=== PATIENT | male | born 1965 | race Caucasian/White ===

== ENCOUNTER 2017-12-03 08:36 | Observation (INO) ==
--- NOTE | 2017-12-03 09:50 | ED ---
HPI General Chief Complaint: Chest Pain Stated Complaint: chest pain x 1 day Time Seen by Provider: 12/03/17 09:34 Source: patient Mode of arrival: ambulatory Limitations: no limitations History of Present Illness HPI narrative: This patient complains of chest pain. Duration is 15 hours per severity is moderate. Location is low center sternum. He is not short of breath. He has no fever or cough. He denies heartburn. He says the pain is worse when he lies on his right side. No alleviating factors. No injury. He denies coronary artery disease. He says in [place] where he is from he had a heart catheterization 4 years ago that did not show any significant problem. He does not have any documentation. Severity of discomfort is moderate. It has significantly improved from yesterday evening. Complete Quality Measures for STEMI Alert Patients Related Data Home Medications Medication Instructions Recorded Confirmed Vitamin D3 2,000 units PO DAILY 12/03/17 12/03/17 diltiazem HCl 240 mg PO DAILY 12/03/17 12/03/17 lisinopril-hydrochlorothiazide 1 tab PO HS 12/03/17 12/03/17 Allergies Allergy/AdvReac Type Severity Reaction Status Date / Time penicillin V Allergy Unknown unknown Verified 12/03/17 09:01 Review of Systems Except as stated in HPI: all other systems reviewed are negative [facility] Medical History Medical History History of testicular lump (Acute) Hypertension (Acute) Normal coronary angiogram (Acute) Surgical History Surgical History History of umbilical hernia repair (Acute) History of vasectomy (Acute) Social History Social History Substance History: No History of Abuse Second Hand Smoke Exposure: No Smoking Status: Never smoker How Often Do You Have a Drink Containing Alcohol: 2 to 4 times a month Recent Travel in [facility] within the Last 8 Weeks: No Recent Out of Country Travel within the Last 8 Weeks: Yes Immunization History Tetanus Immunization: <5 Years Tetanus Immunization Year if Known: 2016 Hx Influenza Vaccine This Season: No Exam Narrative Exam Narrative: GENERAL: Well-nourished, well-developed patient in no apparent distress. SKIN: Focused skin assessment reveals no rash and nodules. Skin is Warm and dry. HEAD: Atraumatic. Normocephalic. EYES: Pupils equal and round. No scleral icterus. No injection or drainage. ENT: No nasal bleeding or discharge. Mucous membranes pink and moist. NECK: Trachea midline. No JVD. CARDIOVASCULAR: Regular rate and rhythm. No murmur appreciated. RESPIRATORY: No accessory muscle use. Clear to auscultation. Breath sounds equal bilaterally. GASTROINTESTINAL: Abdomen soft, non-tender, nondistended. Hepatic and splenic margins not palpable. MUSCULOSKELETAL: No obvious deformities. No clubbing. No cyanosis. No edema. NEUROLOGICAL: Awake and alert. No obvious cranial nerve deficits. Motor grossly within normal limits. Normal speech. PSYCHIATRIC: Appropriate mood and affect; insight and judgment normal. Course Initial Documented Vital Signs Temperature 98.2 F 12/03/17 08:40 Pulse Rate 65 12/03/17 08:40 Respiratory Rate 16 12/03/17 08:40 Blood Pressure 163/79 H 12/03/17 08:40 Pulse Oximetry 95 12/03/17 08:40 Last Documented Vital Signs Temperature 98.2 F 12/03/17 08:40 Pulse Rate 66 12/03/17 10:00 Respiratory Rate 16 12/03/17 10:00 Blood Pressure 114/57 L 12/03/17 10:00 Pulse Oximetry 97 12/03/17 10:00 Medical Decision Making MDM Narrative Medical decision making narrative: I ordered a chest pain workup. I reviewed his EKG which shows sinus rhythm but no ST elevation. I reviewed his chest x-ray which shows atelectasis and hemidiaphragm elevation I gave him aspirin Labs are all normal including cardiac enzymes Had a lengthy discussion with the patient. He will be a 23 hour observation in the chest pain center in order to rule out cardiac cause of his symptoms. I have paged the hospitalist to discuss. Differential Diagnosis Differential Diagnosis: Differential diagnosis includes [place], angina, pericarditis , pleurisy, GERD, anxiety. Medical Records Medical records reviewed: Yes I reviewed the patient's medical records. Lab Data Lab results reviewed: Yes I reviewed the patient's lab results. Lab results narrative: Normal Result diagrams: 12/03/17 09:15 12/03/17 09:15 Lab Results 12/03/17 12/03/17 12/03/17 Range/Units 09:15 09:15 09:15 CBC w Diff Auto diff final WBC 7.2 (4.0-11.0) th/mm3 RBC 5.58 (4.50-5.90) mil/mm3 Hgb 17.0 (13.0-17.0) gm/dL Hct 49.5 (39.0-51.0) % MCV 88.7 (80.0-100.0) fL MCH 30.5 (27.0-34.0) pg MCHC 34.3 (32.0-36.0) % RDW 11.9 (11.6-17.2) % Plt Count 188 (150-450) th/mm3 MPV 7.9 (7.0-11.0) fL Neut % (Auto) 65.9 (16.0-70.0) % Lymph % (Auto) 20.4 (9.0-44.0) % [place] % (Auto) 11.4 H (0.0-8.0) % Eos % (Auto) 1.1 (0.0-4.0) % Baso % (Auto) 1.2 (0.0-2.0) % Neut # (Auto) 4.7 (1.8-7.7) th/mm3 Lymph # (Auto) 1.5 (1.0-4.8) th/mm3 [place] # (Auto) 0.8 (0.0-0.9) th/mm3 Eos # (Auto) 0.1 (0.0-0.4) th/mm3 Baso # (Auto) 0.1 (0.0-0.2) th/mm3 WBC Differential . Differential Comment . PT 10.7 (9.8-11.6) sec INR 1.1 Ratio APTT 27.8 (24.3-30.1) sec Sodium 140 (136-145) meq/L Potassium 3.4 L (3.5-5.1) meq/L Chloride 103 (98-107) meq/L Carbon Dioxide 27.8 (21.0-32.0) meq/L Anion Gap 9 (5-15) meq/L BUN 13 (7-18) mg/dL Creatinine 1.10 (0.60-1.30) mg/dL Estimated GFR 70 L (>89) mL/min Random Glucose 97 (74-106) mg/dL Calcium 8.5 (8.5-10.1) mg/dL Magnesium 2.1 (1.5-2.5) mg/dL Total Bilirubin 0.9 (0.2-1.0) mg/dL AST 19 (15-37) U/L ALT 32 (12-78) U/L Alkaline Phosphatase 75 (45-117) U/L Total Creatine Kinase 111 (39-308) U/L CK-MB (CK-2) Less than 0.5 L (0.5-3.6) ng/mL Troponin I Less than 0.02 L (0.02-0.05) ng/mL Total Protein 6.8 (6.4-8.2) g/dL Albumin 3.8 (3.4-5.0) g/dL Lipase 119 (73-393) U/L Imaging Data Radiologist's impression: ITS Impressions Chest X-Ray 12/03/17 09:42 CONCLUSION: Elevation right hemidiaphragm with right basilar density likely atelectasis. Discharge Plan Physicians Team ED Provider: Cuauhtemoc Hudson Primary Care Provider: Joseph Graf Rxs /Orders / Referrals /Forms Prescriptions: No Action diltiazem HCl 240 mg Capsule,Ext.Rel 24h Degradable 240 mg PO DAILY RF: 0 lisinopril-hydrochlorothiazide 20-12.5 mg Tablet 1 tab PO HS RF: 0 Vitamin D3 1,000 UNITS 2,000 units PO DAILY RF: 0 Discharge Interventions Interventions: Vital Signs Last Done: 12/03/17 10:00 Status ED Status: With Doctor
[2017-12-03 10:09] LABS: Baso # (Auto) 0.1 th/mm3 (0.0-0.2); Baso % (Auto) 1.2 % (0.0-2.0); Eos # (Auto) 0.1 th/mm3 (0.0-0.4); Eos % (Auto) 1.1 % (0.0-4.0); Hematocrit 49.5 % (39.0-51.0); Lymph # (Auto) 1.5 th/mm3 (1.0-4.8); Lymph % (Auto) 20.4 % (9.0-44.0); Mean Corpuscular HGB Conc 34.3 % (32.0-36.0); Mean Corpuscular Hemoglobin 30.5 pg (27.0-34.0); Mean Corpuscular Volume 88.7 fL (80.0-100.0); Mean Platelet Volume 7.9 fL (7.0-11.0); Mono # (Auto) 0.8 th/mm3 (0.0-0.9); Mono % (Auto) 11.4 % (0.0-8.0); Neut # (Auto) 4.7 th/mm3 (1.8-7.7); Neut % (Auto) 65.9 % (16.0-70.0); Platelet Count 188 th/mm3 (150-450); Red Blood Count 5.58 mil/mm3 (4.50-5.90); Red Cell Distribution Width 11.9 % (11.6-17.2); White Blood Count 7.2 th/mm3 (4.0-11.0)
--- NOTE | 2017-12-03 10:17 | XR ---
EXAM DATE: 12/03/2017 10:07 AM EDT AGE/SEX: 52 years / Male INDICATIONS: Substernal chest pain x 2 days. CLINICAL DATA: This is the patient's initial encounter. Patient reports that signs and symptoms have been present for 2 days and indicates a pain score of 5/10. MEDICAL/SURGICAL HISTORY: Hypertension. Umbilical hernia repair. COMPARISON: No prior exams available for comparison. FINDINGS: A single AP view of the chest demonstrates elevation right hemidiaphragm and right basilar density. L eft lung clear. Heart borderline enlarged. The cardiomediastinal contours are unremarkable. Osseous structures are intact. CONCLUSION: Elevation right hemidiaphragm with right basilar density likely atelectasis. Electronically signed by: Pako Tipton MD 12/03/2017 10:15 AM EDT
[2017-12-03 10:20] LABS: Chloride 103 meq/L (98-107); Potassium 3.4 meq/L (3.5-5.1); Sodium 140 meq/L (136-145)
[2017-12-03 10:23] LABS: Calcium 8.5 mg/dL (8.5-10.1)
[2017-12-03 10:24] LABS: Albumin 3.8 g/dL (3.4-5.0); Anion Gap 9 meq/L (5-15); Blood Urea Nitrogen 13 mg/dL (7-18); Carbon Dioxide 27.8 meq/L (21.0-32.0); Glucose,Random 97 mg/dL (74-106); Magnesium 2.1 mg/dL (1.5-2.5)
[2017-12-03 10:25] LABS: Lipase 119 U/L (73-393)
[2017-12-03 10:26] LABS: Activated Partial Thrombo Time 27.8 sec (24.3-30.1); INR 1.1 Ratio; Prothrombin Time 10.7 sec (9.8-11.6)
[2017-12-03 10:27] LABS: Alanine Aminotransferase 32 U/L (12-78); Aspartate Aminotransferase 19 U/L (15-37); Glomerular Filtration Rate 70 mL/min (>89)
[2017-12-03 10:29] LABS: Total Protein 6.8 g/dL (6.4-8.2)
[2017-12-03 10:30] LABS: Alkaline Phosphatase 75 U/L (45-117); Creatine Kinase 111 U/L (39-308)
--- NOTE | 2017-12-03 10:52 | ECG ---
Date Performed: 12/03/2017 Time Performed: 08:41:47 PTAGE: 52 years EKG: Sinus rhythm MINIMAL VOLTAGE CRITERIA FOR LVH, CONSIDER NORMAL VARIANT BORDERLINE ECG INTERPRETATION BASED ON A D EFAULT AGE OF 88 YEARS NO PREVIOUS TRACING DOCTOR: Luis Astorga Interpretating Date/Time 12/03/2017 10:50:34
--- NOTE | 2017-12-03 12:05 | P.HPIM ---
History of Present Illness Primary Care Physician: Joseph Graf MD Chief Complaint: chest pain History of Present Illness: patient is a 52 y/o male with history of hypertension who presented to ER with chest pain. he says that the pain started last evening when he was resting. the pain was sharp and midsternal with no radiation. he denies any nausea but had some sob. he says that he had cardiac cath three-four years ago which was reportedly negative. - Diagnosis (1) Atypical chest pain (2) Hypertension Inpatient Certification: I certify that the inpatient services were ordered in accordance with Medicare regulations governing the order. This includes certification that hospital inpatient services are reasonable and necessary and in the case of services not specified as inpatient-only under 42 CFR 419.22(n), that they are appropriately provided as inpatient services in accordance to with the 2-midnight benchmark under 43 CFR 412.3(e) Review of Systems All other systems reviewed negative except as stated in HPI PMFSH - History History Provided By: Patient, Family Member - Medical History Medical History: Medical History (Last Updated 12/03/17 @ 09:20 by Laura Claros) History of testicular lump Hypertension Normal coronary angiogram - Surgical History Surgical History: Surgical History (Last Updated 12/03/17 @ 09:20 by Laura Claros) History of umbilical hernia repair History of vasectomy - Tobacco History Second Hand Smoke Exposure: No Tobacco Use In Past 30 Days: No Smoking Status: Never smoker - Alcohol History How Often Do You Have a Drink Containing Alcohol: 2 to 4 times a month - Substance Use History Substance History: No History of Abuse - Travel History Recent Travel in the [place] Within the Last 8 Weeks: No Recent Travel Out of the Country Within the Last 8 Weeks: Yes - Immunization History Tetanus Immunization: <5 Years Tetanus Immunization Year if Known: 2015 Hx Influenza Vaccine This Season: No Medications and Allergies Active Medications: Active Medications Sodium Chloride (Ns Inj) 1,000 mls @ 100 mls/hr IV.CONT .Q10H ALEXANDRA Non-Formulary Medication (Lisinopril-Hydrochlorothiazide [Lisinopril- Hydrochlorothiazide]) 1 tab PO HS ALEXANDRA Potassium Chloride (K-Dur) 20 meq PO ONCE ONE Stop: 12/03/17 11:59 Sodium Chloride (Ns Flush) 2 ml IV.FLUSH UNSCH PRN PRN Reason: FLUSH AFTER USING IV ACCESS Allergies Allergy/AdvReac Type Severity Reaction Status Date / Time penicillin V Allergy Unknown unknown Verified 12/03/17 09:01 Home Medications Medication Instructions Recorded Confirmed Type Vitamin D3 2,000 units PO DAILY 12/03/17 12/03/17 History diltiazem HCl 240 mg PO DAILY 12/03/17 12/03/17 History lisinopril-hydrochlorothiazide 1 tab PO HS 12/03/17 12/03/17 History Exam Vital signs: Vital Signs 12/03/17 08:40 12/03/17 09:05 12/03/17 10:00 Temperature 98.2 F Pulse Rate 65 66 Respiratory Rate 16 16 Blood Pressure 163/79 H 114/57 L Pulse Oximetry 95 97 97 12/03/17 11:11 Temperature Pulse Rate 70 Respiratory Rate 16 Blood Pressure 122/84 Pulse Oximetry 97 Intake & Output 12/02/17 12/03/17 12/03/17 18:59 06:59 18:59 Weight 149.4 kg - Constitutional no acute distress - Routine HEENT Exam Eye: Present: PERRL - Routine Neck Exam Present: supple, full ROM - Routine Respiratory Exam Present: CTA bilaterally - Routine Cardiovascular Exam Present: RRR - Routine Abdominal Exam Present: soft - Routine Extremities Exam Comments: no pedal edema. - Routine Neurological Exam Present: alert, oriented X3 Results - Labs CBC & Chem 7: 12/03/17 09:15 12/03/17 09:15 Labs: Short CBC 12/03/17 Range/Units 09:15 WBC 7.2 (4.0-11.0) th/mm3 Hgb 17.0 (13.0-17.0) gm/dL Hct 49.5 (39.0-51.0) % Plt Count 188 (150-450) th/mm3 BMP 12/03/17 09:15 Sodium 140 Potassium 3.4 L Chloride 103 Carbon Dioxide 27.8 BUN 13 Creatinine 1.10 Calcium 8.5 Cardiac Enzymes 12/03/17 Range/Units 09:15 Total Creatine Kinase 111 (39-308) U/L CK-MB (CK-2) Less than 0.5 L (0.5-3.6) ng/mL Troponin I Less than 0.02 L (0.02-0.05) ng/mL Liver Function 12/03/17 Range/Units 09:15 Total Bilirubin 0.9 (0.2-1.0) mg/dL AST 19 (15-37) U/L ALT 32 (12-78) U/L Alkaline Phosphatase 75 (45-117) U/L Albumin 3.8 (3.4-5.0) g/dL - Imaging Impressions Chest X-Ray 12/03/17 09:42 CONCLUSION: Elevation right hemidiaphragm with right basilar density likely atelectasis. Caprini VTE Risk Assessment Caprini VTE Risk Assessment: Moderate/High Risk (score >= 2) Caprini Risk Assessment Model: Point Value = 1 Point Value = 2 Point Value = 3 Point Value = 5 Age 41-60 Minor surgery BMI > 25 kg/m2 Swollen legs Varicose veins or History of unexplained or recurrent spontaneous Oral contraceptives or hormone replacement Sepsis (< 1 month) Serious lung disease, including pneumonia (< 1 month) Abnormal pulmonary function Acute myocardial infarction Congestive heart failure (< 1 month) History of inflammatory bowel disease Medical patient at bed rest Age 61-74 Arthroscopic surgery Major open surgery (> 45 min) Laparoscopic surgery (> 45 min) Malignancy Confined to bed (> 72 hours) Immobilizing plaster cast Central venous access Age >= 75 History of VTE Family history of VTE Factor V Leiden Prothrombin [id number] Lupus anticoagulant Anticardiolipin antibodies Elevated serum homocysteine Heparin-induced thrombocytopenia Other congenital or acquired thrombophilia Stroke (< 1 month) Elective arthroplasty Hip, pelvis, or leg fracture Acute spinal cord injury (< 1 month) Prophylaxis Regimen: Total Risk Factor Score Risk Level Prophylaxis Regimen 0-1 Low Early ambulation 2 Moderate Order ONE of the following: *Sequential Compression Device (SCD) *Heparin 5000 units SQ BID 3-4 Higher Order ONE of the following medications: *Heparin 5000 units SQ TID *Enoxaparin/Lovenox 40 mg SQ daily (WT < 150 kg, CrCl > 30 mL/min) *Enoxaparin/Lovenox 30 mg SQ daily (WT < 150 kg, CrCl > 10-29 mL/min) *Enoxaparin/Lovenox 30 mg SQ BID (WT < 150 kg, CrCl > 30 mL/min) AND/OR *Sequential Compression Device (SCD) 5 or more Highest Order ONE of the following medications: *Heparin 5000 units SQ TID (Preferred with Epidurals) *Enoxaparin/Lovenox 40 mg SQ daily (WT < 150 kg, CrCl > 30 mL/min) *Enoxaparin/Lovenox 30 mg SQ daily (WT < 150 kg, CrCl > 10-29 mL/min) *Enoxaparin/Lovenox 30 mg SQ BID (WT < 150 kg, CrCl > 30 mL/min) AND *Sequential Compression Device (SCD) Assessment and Plan - Assessment (1) Atypical chest pain Code(s): R07.89 - Other chest pain Status: Acute Plan: will rule out with serial cardiac enzymes- stress test tomorrow if cardiac enzymes negative. of note had a normal cardiac cath three-four years ago. (2) Hypertension Code(s): I10 - Essential (primary) hypertension Status: Chronic Plan: resume lisinopril- hold cardizem for today. - Plan Discussed Condition With: ER physician and the patient. Discharge Planning: possible tomorrow-pending the cardiac work-up. (2) Hypertension Qualifiers: Hypertension type: essential hypertension Qualified Code(s): I10 - Essential (primary) hypertension
[2017-12-03] MEDS: Sod Chloride 0.9% Inj 1,000 ML IV.CONT SCH ×2 (12:41→22:27)
[2017-12-03] MEDS ORDERED: hydroCHLOROthiazide 25 MG Tablet PO SCH (21:00)
[2017-12-03] MEDS ORDERED: Lisinopril 20 MG Tablet PO SCH (21:00)
--- NOTE | 2017-12-03 23:12 | ECG ---
Date Performed: 12/03/2017 Time Performed: 15:30:06 PTAGE: 52 years EKG: Sinus rhythm NONSPECIFIC INTRAVENTRICULAR CONDUCTION DELAY MINIMAL VOLTAGE CRITERIA FOR LVH, CONSIDER NORMAL VARI ANT NONSPECIFIC T-WAVE ABNORMALITY BORDERLINE ECG PREVIOUS TRACING : 12/03/2017 08.41 No significant change from previous tracing noted. DOCTOR: Luis Astorga Interpretating Date/Time 12/03/2017 23:11:07
--- NOTE | 2017-12-04 08:13 | P.PN ---
Subjective Interval history: in no acute distress. denies chest pain, sob or any other new complaints. Physical Exam Vital signs: Vital Signs 12/03/17 08:40 12/03/17 09:05 12/03/17 10:00 Temperature 98.2 F Pulse Rate 65 66 Respiratory Rate 16 16 Blood Pressure 163/79 H 114/57 L Pulse Oximetry 95 97 97 12/03/17 11:11 12/03/17 11:45 12/03/17 16:00 Temperature 98.3 F 97.6 F Pulse Rate 70 70 Respiratory Rate 16 20 20 Blood Pressure 122/84 133/77 147/71 H Pulse Oximetry 97 94 L 92 L 12/03/17 20:00 12/03/17 20:54 12/03/17 22:33 Temperature 98.6 F Pulse Rate 67 Respiratory Rate 20 Blood Pressure 138/80 Pulse Oximetry 96 96 96 12/04/17 00:00 12/04/17 04:05 12/04/17 07:11 Temperature 97.4 F L 97.1 F L 97.1 F L Pulse Rate 63 65 67 Respiratory Rate 20 20 20 Blood Pressure 146/71 H 136/61 151/65 H Pulse Oximetry 96 96 94 L Intake & Output 12/03/17 12/04/17 12/04/17 18:59 06:59 18:59 Intake Total 720 / 720 1000 / 1000 Balance 720 / 720 1000 / 1000 Weight 149.4 kg Intake: IV 1000 / 1000 NS Inj 1,000 ML @ 100 mls/hr IV 1000 / 1000 .CONT .Q10H ALEXANDRA Rx#:[id number] Oral 720 / 720 Other: # Voids 1 # Bowel Movements 1 - Constitutional no acute distress - Routine Respiratory Exam Present: CTA bilaterally - Routine Cardiovascular Exam Present: RRR - Routine Abdominal Exam Present: soft - Routine Extremities Exam Comments: no pedal edema. - Routine Neurological Exam Present: alert Results - Labs CBC & Chem 7: 12/03/17 09:15 12/03/17 09:15 Laboratory Results - last 24 hr 12/03/17 12/03/17 12/03/17 09:15 09:15 09:15 CBC w Diff Auto diff final WBC 7.2 RBC 5.58 Hgb 17.0 Hct 49.5 MCV 88.7 MCH 30.5 MCHC 34.3 RDW 11.9 Plt Count 188 MPV 7.9 Neut % (Auto) 65.9 Lymph % (Auto) 20.4 [place] % (Auto) 11.4 H Eos % (Auto) 1.1 Baso % (Auto) 1.2 Neut # (Auto) 4.7 Lymph # (Auto) 1.5 [place] # (Auto) 0.8 Eos # (Auto) 0.1 Baso # (Auto) 0.1 WBC Differential . Differential Comment . PT 10.7 INR 1.1 APTT 27.8 Sodium 140 Potassium 3.4 L Chloride 103 Carbon Dioxide 27.8 Anion Gap 9 BUN 13 Creatinine 1.10 Estimated GFR 70 L Random Glucose 97 Calcium 8.5 Magnesium 2.1 Total Bilirubin 0.9 AST 19 ALT 32 Alkaline Phosphatase 75 Total Creatine Kinase 111 CK-MB (CK-2) Less than 0.5 L Troponin I Less than 0.02 L Total Protein 6.8 Albumin 3.8 Lipase 119 12/03/17 12/03/17 13:08 15:30 CBC w Diff WBC RBC Hgb Hct MCV MCH MCHC RDW Plt Count MPV Neut % (Auto) Lymph % (Auto) [place] % (Auto) Eos % (Auto) Baso % (Auto) Neut # (Auto) Lymph # (Auto) [place] # (Auto) Eos # (Auto) Baso # (Auto) WBC Differential Differential Comment PT INR APTT Sodium Potassium Chloride Carbon Dioxide Anion Gap BUN Creatinine Estimated GFR Random Glucose Calcium Magnesium Total Bilirubin AST ALT Alkaline Phosphatase Total Creatine Kinase CK-MB (CK-2) Troponin I Less than 0.02 L Less than 0.02 L Total Protein Albumin Lipase - Imaging Impressions Chest X-Ray 12/03/17 09:42 CONCLUSION: Elevation right hemidiaphragm with right basilar density likely atelectasis. Assessment and Plan - Assessment (1) Atypical chest pain Code(s): R07.89 - Other chest pain Status: Acute Plan: cardiac enzymes negative- for stress test today. of note had a normal cardiac cath three-four years ago. (2) Hypertension Code(s): I10 - Essential (primary) hypertension Status: Chronic Plan: resumed lisinopril- hold cardizem for today. - Plan Discharge Planning: possible today-pending the stress test. (2) Hypertension Qualifiers: Hypertension type: essential hypertension Qualified Code(s): I10 - Essential (primary) hypertension
[2017-12-04] MEDS: Sod Chloride 0.9% Inj 1,000 ML IV.CONT SCH (08:17)
[2017-12-04] MEDS ORDERED: Enoxaparin Inj 40 MG/0.4 ML Syringe SQ SCH (09:00)
[2017-12-04] MEDS ORDERED: Regadenoson Inj 0.4 MG/5 ML Syringe IV.PUSH ONE (11:42)
--- NOTE | 2017-12-04 12:49 | NM ---
EXAM DATE: 12/04/2017 12:36 PM EDT AGE/SEX: 52 years / Male INDICATIONS:Angina. . Left sided chest pain for one day. CLINICAL DATA: This is the patient's initial encounter. Patient reports that signs and symptoms have been present for 1 day and indicates a pain score of 7/10. MEDICAL/SURGICAL HISTORY: Hypertension. Umbilical hernia repair. COMPARISON: No prior exams available for comparison. No external comparison. DOSE: 11.0 mCi Tc 99m Myoview at rest 35.0 mCi [id number] at stress 0.4 mg Lexiscan STRESS SYMPTOMS: Short of breath. EJECTION FRACTION: 46 % TECHNIQUE: The patient underwent pharmacologic stress with infusion of prescribed dose. Continuous ECG tracing was monitored during stress. Gated SPECT imaging was performed after stress and conventi onal SPECT imaging was performed at rest. The examination was performed on a SPECT/CT scanner, both attenuation and non-corrected datasets were reviewed. FINDINGS: Distribution: The maximum perfused segment at stress is in the lateral wall. Perfusion Study: No reversible perfusion defect. Small matched defect at the apex. Gated Study: Global hypokinesia. The ejection fraction is calculated at 46%. RISK CATEGORY: Intermediate (1-3 % Annual Mortality Rate) CONCLUSION: 1. No reversible perfusion defects to suggest ischemia. 2. Ejection fraction 46%. Electronically signed by: Pako Tipton MD 12/04/2017 12:48 PM EDT
--- NOTE | 2017-12-12 17:45 | TR ---
Date Performed: 12/04/2017 Time Performed: 12:01:34 DOCTOR: Rhys Barrios DRUG LIST: CLINICAL HISTORY: ANGINA REASON FOR TEST: Angina REASON FOR ENDING: OBSERVATION: CONCLUSION: COMMENTS: Lexiscan stress test was performed under standard four minute protocol. Radionuclide was injected one minute prior to ending the test. No electrocardiographic abormalities were present t o suggest ischemia. Nuclear imaging and interpretation are pending.
== END 2017-12-04 14:50 | disposition home or self-care (01) ==
LOC: EDBD → PHED 08:36 → PH3 08:36 → PHEDA 08:36 → PH3 11:27
PROVIDERS: ADMIT Internal Medicine; ATTEND Internal Medicine